=== PATIENT | female | born 1990 | race Two or more races ===

== ENCOUNTER 2025-04-13 09:40 | Emergency (ER) | payer OTHER ==
[~2025-04-13] VITALS: Ht 157.5 cm; Wt 70.5 kg
[2025-04-13 10:07] VITALS: TEMP 97.8
[2025-04-13 10:29] LABS: HEMATOCRIT 44.4 % (36-46); MEAN CORPUSCULAR HEMOGLOBIN 29.4 pg (26.0-34.0); MEAN CORPUSCULAR HGB CONC 33.7 G/dL (31.0-37.0); MEAN CORPUSCULAR VOLUME 87 fL (80-100); PLATELET COUNT (AUTO) 265 K/uL (150-450); RED BLOOD CELL COUNT(AUTO) 5.09 MIL/uL (4.00-5.20); RED CELL DISTRIBUTION WIDTH 13.1 % (11.5-14.5); WHITE BLOOD COUNT (AUTO) 9.8 K/uL (4.5-11.0)
[2025-04-13 10:42] LABS: ANION GAP 5 mmol/L (8-16); CARBON DIOXIDE 29 mmol/L (22-29); CHLORIDE 104 mmol/L (98-107); CREATININE 0.66 mg/dL (0.60-1.30); GLOMERULAR FILTR. RATE CALC > 60 mL/min (>60); GLUCOSE,RANDOM 93 mg/dL (70-110); POTASSIUM 4.3 mmol/L (3.5-5.1); SODIUM SERUM 138 mmol/L (136-145); UREA NITROGEN, BLOOD 5 mg/dL (7-18)
[2025-04-13] MEDS: ACETAMINOPHEN 500 MG TABLET PO ONE (10:46)
[2025-04-13] MEDS: AmLODIPine BESYLATE 5 MG TABLET PO ONE (10:46)
[2025-04-13 10:50] LABS: ALCOHOL, URINE DRUG SCREEN NEGATIVE (NEGATIVE); AMPHET/METH SCREEN,URINE POSITIVE (NEGATIVE); BARBITURATE SCREEN, URINE NEGATIVE (NEGATIVE); BENZODIAZEPINES SCREEN,URINE NEGATIVE (NEGATIVE); CANNABINOID SCREEN,URINE NEGATIVE (NEGATIVE); COCAINE SCREEN,URINE NEGATIVE (NEGATIVE); METHADONE SCREEN, URINE NEGATIVE (NEGATIVE); OPIATE SCREEN,URINE NEGATIVE (NEGATIVE); PHENCYCLIDINE SCREEN,URINE NEGATIVE (NEGATIVE)
[2025-04-13 10:57] LABS: RBC MORPHOLOGY COMMENT NORMAL RBC MORPH
[2025-04-13 10:59] LABS: BAND NEUTROPHILS % (MANUAL) 0 % (0-5); SEGMENTED NEUTROPHILS % 67 % (40-70); TOTAL CELLS COUNTED 100
[2025-04-13 11:00] LABS: BASOPHILS % (MANUAL) 1 % (0-2); EOSINOPHILS % (MANUAL) 1 % (1-6); LYMPHOCYTES % (MANUAL) 26 % (22-44); MONOCYTES % (MANUAL) 5 % (2-9)
[2025-04-13 11:28] VITALS: BP 155/90; PULSE 74; RESP 18; O2SAT 99
== END 2025-04-13 11:54 ==
LOC: EMS 09:44
DX: I10 Essential (primary) hypertension (principal); F15.10 Other stimulant abuse, uncomplicated; Z87.59 Personal history of other complications of pregnancy, childbirth and the puerperium; Z72.89 Other problems related to lifestyle
CPT/HCPCS: 99283; 80048; 84703; 85025; 36415; 80307; G0480